=== PATIENT | female | born 1980 | race African-American/Black ===

== ENCOUNTER → 2017-12-09 | Outpatient (CLI) | payer OTHER | LOC: M SMT 09:31 | DX: R06.00 Dyspnea, unspecified (principal) | CPT/HCPCS: 71046 ==

== ENCOUNTER → 2017-12-29 | Outpatient (CLI) | payer OTHER ==
[~2017-12-29] MED LIST: METHACHOLINE KIT (J7674) INH
== END ==
LOC: M CARPUL 13:34
DX: R06.00 Dyspnea, unspecified (principal)
CPT/HCPCS: J7674

== ENCOUNTER → 2021-03-04 | Outpatient (REF) ==
--- NOTE | 2021-03-04 12:19 | REP ---
INDICATION: PAIN, SOB. COMPARISON: None. TECHNIQUE: I PA and lateral views three views total FINDINGS: There is no acute fracture or destructive osseous lesion. IMPRESSION: Within normal limits <Electronically signed by Mayo Villa > 03/04/21 [id number]
--- NOTE | 2021-03-04 12:20 | REP ---
INDICATION: PAIN, SOB. COMPARISON: 12/09/2017 TECHNIQUE: PA and lateral views FINDINGS: The superior mediastinal structures are midline. The cardiac silhouette is unremarkable in size, shape, and position. The diaphragmatic surfaces of the lungs are regular, and the costophrenic angles are clear. The pulmonary collazo are clear. The imaged osseous structures are intact. IMPRESSION: There is no acute cardiopulmonary disease. <Electronically signed by Mayo Villa > 03/04/21 [id number]
--- NOTE | 2021-03-04 12:48 | REP ---
INDICATION: PAIN, SOB. COMPARISON: None. TECHNIQUE: Three AP and lateral views lumbosacral spine. FINDINGS: There is spondylolysis of L5 with anterior grade 1 spondylolisthesis of L5 on S1. There is mild chronic loss of height of the L5 vertebral body. There is moderate disc space narrowing and subchondral sclerosis at the L5-S1 disc space. The other lumbar disc spaces appear well preserved. IMPRESSION: Spondylolysis L5 with anterior grade 1 spondylolisthesis of L5 on S1 and moderate degenerative disc changes at L5-S1. <Electronically signed by Shaji Mak > 03/04/21 [id number]
== END ==
LOC: M PLAIMG 11:03
PROVIDERS: ATTEND Internal Medicine
DX: R06.02 Shortness of breath (principal)